=== PATIENT | female | born 1955 | race Caucasian/White ===

== ENCOUNTER 2025-01-02 10:38 | Outpatient (CLI) | payer MEDICARE, OTHER | END 2025-01-02 10:39 | disposition home or self-care (01) | LOC: BICRAD 10:38 | PROVIDERS: ATTEND Radiology Radiation Oncology | DX: C78.00 Secondary malignant neoplasm of unspecified lung (principal) ==

== ENCOUNTER 2025-01-07 11:45 | Outpatient (CLI) | payer MEDICARE, OTHER | END 2025-01-07 11:46 | disposition home or self-care (01) | LOC: PET 11:45 | PROVIDERS: ATTEND Internal Medicine | DX: C34.31 Malignant neoplasm of lower lobe, right bronchus or lung (principal); C79.51 Secondary malignant neoplasm of bone; K63.89 Other specified diseases of intestine | CPT/HCPCS: 78815; A9552 ==

== ENCOUNTER 2025-01-16 11:38 | Outpatient (CLI) | payer MEDICARE, OTHER | END 2025-01-16 11:39 | disposition home or self-care (01) | LOC: MRI 11:38 | PROVIDERS: ATTEND Internal Medicine | DX: C34.31 Malignant neoplasm of lower lobe, right bronchus or lung (principal); M25.551 Pain in right hip; C79.51 Secondary malignant neoplasm of bone; R93.3 Abnormal findings on diagnostic imaging of other parts of digestive tract; S73.191A Other sprain of right hip, initial encounter; M67.854 Other specified disorders of tendon, left hip; S76.011A Strain of muscle, fascia and tendon of right hip, initial encounter | CPT/HCPCS: 72197 ==